=== PATIENT | female | born 1955 | race African-American/Black ===

== ENCOUNTER → 2018-10-28 13:39 | Outpatient (CLI) | payer OTHER, SELFPAY ==
--- NOTE | 2018-10-28 | DI.US.S_ITS ---
PROCEDURE: US PERIPH VENOUS LOW EXTREM RT INDICATIONS: LUMBAR RADICULOPATHY LEFT LEG PAIN TECHNIQUE: Real-time imaging, as well as color and pulse Doppler interrogation, were performed of the lower extremity deep veins from the inguinal ligament to the popliteal fossa. COMPARISON: None. FINDINGS: The common femoral, femoral and popliteal veins are normally compressible, and free of intraluminal thrombus. Color and pulse Doppler demonstrate normal phasic intraluminal flow. There is normal augmentation response to distal compression maneuver. IMPRESSION: No evidence of deep venous thrombosis. Dictated by: Rachid Garibay M.D. on 10/28/2018 at 15:01 Approved by: Rachid Garibay M.D. on 10/28/2018 at 15:02
--- NOTE | 2018-10-28 | DI.MRI.S_ITS ---
PROCEDURE: MR LUMBAR SPINE WO CON INDICATIONS: LUMBAR RADICULOPATHY LEFT LEG PAIN TECHNIQUE: Noncontrast sagittal T1 spin echo and T2 fast echo, coronal T2, sagittal STIR, axial T1 and T2 fast spin echo through the lumbar spine. COMPARISON: [facility], MR, L-SPINE WITHOUT CONTRAST, 04/19/2016, 10:31. [facility] [place], CR, XR LUMBAR SPINE 2 OR 3 VIEWS, 11/27/2017, 11:01. FINDINGS: Image quality: Excellent. Alignment and Curvature: 5 lumbar type vertebral bodies are present by plain film. There is mild diffuse leftward curvature of the lumbar spine, and otherwise normal bony alignment. Bone Marrow: Marrow is of normal overall signal. No acute vertebral body compression fractures. Mild reactive signal within the endplates adjacent to the L1-L2, L2-L3, L3-L4, and L4-L5 intervertebral discs. Spinal Cord: Conus medullaris terminates at the mid L1 level. Visualized cord demonstrates normal signal and size. Paraspinous Soft Tissues: No paravertebral masses. L1-L2: Minimal disc desiccation. No significant canal, nor foraminal stenosis. L2-L3: Mild disc desiccation. Mild diffuse disc bulge. Mild facet hypertrophy. Mild canal stenosis. No significant foraminal stenosis. No change. L3-L4: Mild disc loss and desiccation. Mild diffuse disc bulge. Mild facet and ligament flavum hypertrophy. Mild canal stenosis. Mild bilateral foraminal stenosis. No change. L4-L5: Mild diffuse disc bulge. Mild facet hypertrophy bilaterally. Mild canal stenosis. Mild bilateral foraminal stenosis. No change. L5-S1: Mild bilateral facet hypertrophy. Mild diffuse disc bulge. Mild canal stenosis. Moderate subarticular foraminal stenosis bilaterally. No change. IMPRESSION: 1. Multilevel degenerative disc and facet disease, as well as ligamentum flavum hypertrophy and epidural lipomatosis. 2. Mild multilevel canal stenoses. 3. Multilevel foraminal stenoses, worst at L5-S1 bilaterally where there are moderate foraminal stenoses present. Dictated by: Inder Sanders M.D. on 10/28/2018 at 13:53 Approved by: Inder Sanders M.D. on 10/28/2018 at 13:58
== END ==
PROVIDERS: PCP Family Medicine; Visit Provider Physical Medicine & Rehabilitation
DX: M79.605 Pain in left leg (principal); M51.16 Intervertebral disc disorders with radiculopathy, lumbar region; M51.17 Intervertebral disc disorders with radiculopathy, lumbosacral region; M48.061 Spinal stenosis, lumbar region without neurogenic claudication; M48.07 Spinal stenosis, lumbosacral region; E88.2 Lipomatosis, not elsewhere classified
CPT/HCPCS: 72148; 93971

== ENCOUNTER 2018-12-29 22:45 | Emergency (ER) | payer OTHER, SELFPAY ==
--- NOTE | 2018-12-29 22:55 | DI.US.S_ITS ---
PROCEDURE: US PERIPH VENOUS UP EXTREM LT INDICATIONS: PAIN, ERYTHEMA TECHNIQUE: Real-time imaging, as well as color and pulse Doppler interrogation, was performed of the left upper extremity upper extremity deep veins from the inferior neck to the antecubital fossa. COMPARISON: None. FINDINGS: The internal jugular vein, visualized portions of the subclavian vein, axillary, and brachial veins are free of intraluminal thrombus. Where physically possible, the veins are normally compressible. Color and pulse Doppler demonstrate normal intraluminal flow, with expected phasicity and pulsatility. Additional scanning of the cephalic and basilic veins of the superficial system demonstrate normal compressibility, without thrombus. IMPRESSION: No DVT found. Dictated by: Sahil Rutledge M.D. on 12/30/2018 at 1:08 Approved by: Sahil Rutledge M.D. on 12/30/2018 at 1:08
--- NOTE | 2018-12-29 22:56 | DI.RAD.S_ITS ---
PROCEDURE: XR CHEST 1V INDICATIONS: Left arm pain, Hypertension TECHNIQUE: One view of the chest was acquired. COMPARISON: None. FINDINGS: Surgical changes and devices: None. Lungs and pleura: Lungs are clear. No pleural effusions or pneumothorax. Mediastinum: Mediastinal contours appear normal. Heart size is normal. Bones and chest wall: No suspicious bony lesions. Overlying soft tissues appear unremarkable. IMPRESSION: Normal for age, source of current chest pain symptoms is not seen. Dictated by: Sahil Rutledge M.D. on 12/30/2018 at 1:11 Approved by: Sahil Rutledge M.D. on 12/30/2018 at 1:12
[2018-12-29 22:59] VITALS: BP 205/86; PULSE 76; RESP 18; TEMP 35.9; O2SAT 98; BMI 23.1
[2018-12-29 23:10] LABS: Bacteria Urine None Seen; WBC Urine None Seen (0-5/HPF)
--- NOTE | 2018-12-29 23:16 | ED_ITS ---
HPI - Extremity Problem General Chief complaint: Extremity Problem,Nontraumatic Stated complaint: pain left arm Time Seen by Provider: 12/29/18 22:47 Source: patient and family Mode of arrival: ambulatory Limitations: no limitations History of Present Illness HPI Narrative: 63F nonsmoker presents with her and chief complaint of L arm pain starting at the elbow and down her arm in the absence of injury. She states that started last Sunday or and persisted throughout the week and now is worsening. She has pain with motion and palpation. She denies any injury nor associated symptoms such as dizziness, weakness, lightheadedness, chest pain, shortness of breath, nausea, vomiting or diaphoresis. She denies any fever or chills. She denies any history of the same. She denies recent IVs, history of IV drug abuse or other MD Complaint: extremity pain Onset (ago): day(s) Pain Consistency: constant Location: left Quality: aching Radiation: distal Relieving factors: immobilization and rest Exacerbating factors: range of motion Associated symptoms: denies other symptoms Related Data Previous Rx's Medication Instructions Recorded doxycycline hyclate 100 mg PO BID #20 tab 12/30/18 hydrocodone-acetaminophen 1 tab PO Q4-6H PRN #10 tab 12/30/18 ketorolac 10 mg PO TID PRN 5 Days tab 12/30/18 Allergies Allergy/AdvReac Type Severity Reaction Status Date / Time No Known Drug Allergies Allergy Verified 12/29/18 22:59 Review of Systems Constitutional Denies chills, Denies fever(s), Denies lethargy and Denies weakness Eyes Denies change in vision, Denies eye discharge, Denies irritation and Denies loss of vision ENT Ears, Nose, Mouth, and Throat: Denies change in voice, Denies neck pain and Denies sore throat Cardiovascular Denies chest pain, Denies irregular heart rhythm, Denies lightheadedness, Denies palpitations, Denies dyspnea, Denies dyspnea on exertion and Denies orthopnea Respiratory Denies cough, Denies dyspnea, Denies dyspnea on exertion and Denies wheezing Gastrointestinal Gastrointestinal: Denies abdominal pain, Denies change in bowel habits, Denies diarrhea, Denies nausea and Denies vomiting Genitourinary Denies hematuria, Denies flank pain, Denies urinary incontinence and Denies urinary urgency Musculoskeletal Reports limited range of motion and Denies neck pain Integumentary/Breasts Denies pruritus, Denies erythema, Denies rash and Denies wounds Neurologic Denies confusion, Denies loss of vision and Denies weakness Psychiatric Denies anxiety, Denies confusion, Denies depression, Denies homicidal ideation and Denies suicidal ideation Endocrine Denies palpitations Hematologic/Lymphatic Denies easy bruising Allergic/Immunologic Denies wheezing PFSH Social History Smoking Status: Never smoker Social History Smoking Status: Never smoker Exam Narrative Exam Narrative: GENERAL: [63] year old patient appears stated age. Well- nourished, well-developed patient, in mild distress. HEAD: Atraumatic. Normocephalic. EYES: Pupils equal round and reactive. Extraocular motions intact. No scleral icterus. No injection or drainage. ENT: Nose without bleeding, purulent drainage. Throat without erythema, tonsillar hypertrophy or exudate. Airway patent. NECK: Trachea midline. Non tender CARDIOVASCULAR: Regular rate and rhythm without murmurs, gallops, or rubs. RESPIRATORY: Clear to auscultation. Breath sounds equal bilaterally. No wheezes, rales, or rhonchi. GASTROINTESTINAL: Abdomen soft, non-tender, nondistended. EXTREMITIES: Full, painless range of motion at left elbow and wrist. There is minimal swelling and erythema, no induration or fluctuance. No lymphangitis BACK: Nontender without deformity or crepitance. No flank tenderness. NEURO: AOx3. SKIN: No rash or erythema of visible areas other than noted above Initial Vital Signs Initial Vital Signs: Vital Signs Temperature 96.6 F L 12/29/18 22:59 Pulse Rate 76 12/29/18 22:59 Respiratory Rate 18 12/29/18 22:59 Blood Pressure 205/86 H 12/29/18 22:59 Pulse Oximetry 98 12/29/18 22:59 Course Orders Ordered: Discontinued Medications Hydrocodone Bitart/Acetaminophen (Vicodin Prepack) 1 bottle MISC SEEINSTR ONE Stop: 12/30/18 00:22 Last Admin: 12/30/18 00:27 Dose: 1 bottle Ketorolac Tromethamine (Toradol) 15 mg IV NOW ONE Stop: 12/29/18 22:56 Last Admin: 12/29/18 23:34 Dose: 15 mg Vital Signs - 8 hr 12/29/18 22:59 12/29/18 23:48 Temperature 96.6 F L Pulse Rate 76 11 L Respiratory Rate 18 12 Blood Pressure 205/86 H Blood Pressure [Left Arm] 168/80 H Pulse Oximetry 98 98 MDM - Extremity (Nontraumatic) Lab Data Result diagrams: 12/29/18 23:25 12/29/18 23:25 Lab Results 12/29/18 12/29/18 12/29/18 Range/Units 23:00 23:25 23:25 WBC 8.6 (4.5-11.0) X10^3/uL RBC 4.57 (4.0-5.2) X10^6/uL Hgb 12.9 (12.0-16.0) g/dL Hct 38.1 (36-46) % MCV 83.4 (80-100) fL MCH 28.1 (26-34) PG MCHC 33.7 (30-36) % RDW 13.9 (11.6-14.8) % Plt Count 223 (150-400) X10^3/uL Neut % (Auto) 59.2 (50-75) % Lymph % (Auto) 29.4 (25-40) % [place] % (Auto) 6.4 (3-14) % Eos % (Auto) 4.1 H (2-4) % Baso % (Auto) 0.9 (0-2) % Neut # (Auto) 5100 (3791-2558) /uL Lymph # (Auto) 2500 (7198-8174) /uL [place] # (Auto) 600 (0-900) /uL Eos # (Auto) 400 (0-450) /uL Baso # (Auto) 100 (0-100) /uL ESR 28 H (0-20) MM/HR Sodium 140 (137-145) mmol/L Potassium 3.8 (3.4-5.1) mmol/L Chloride 104 (98-107) mmol/L Carbon Dioxide 30 (22-32) mmol/L BUN 15 (7-17) mg/dL Creatinine 0.70 (0.52-1.04) mg/dL Estimated GFR > 60.0 (>60) mL/min BUN/Creatinine Ratio 21.4 (6-22) Glucose 106 (80-110) mg/dL Calcium 9.1 (8.4-10.2) mg/dL Total Creatine Kinase (30-135) U/L Troponin I < 0.012 (0.01-0.034) ng/mL C-Reactive Protein 1.1 H (<1.0) mg/dL Urine RBC 0-1/hpf (0-5/HPF) Urine WBC None seen (0-5/HPF) Ur Squamous Epith Cells 0-1 /hpf (0-5/HPF) Urine Bacteria None seen (None) Ur Culture Indicated? Cult not indicated 12/29/18 Range/Units 23:25 WBC (4.5-11.0) X10^3/uL RBC (4.0-5.2) X10^6/uL Hgb (12.0-16.0) g/dL Hct (36-46) % MCV (80-100) fL MCH (26-34) PG MCHC (30-36) % RDW (11.6-14.8) % Plt Count (150-400) X10^3/uL Neut % (Auto) (50-75) % Lymph % (Auto) (25-40) % [place] % (Auto) (3-14) % Eos % (Auto) (2-4) % Baso % (Auto) (0-2) % Neut # (Auto) (1788-4388) /uL Lymph # (Auto) (0971-6702) /uL [place] # (Auto) (0-900) /uL Eos # (Auto) (0-450) /uL Baso # (Auto) (0-100) /uL ESR (0-20) MM/HR Sodium (137-145) mmol/L Potassium (3.4-5.1) mmol/L Chloride (98-107) mmol/L Carbon Dioxide (22-32) mmol/L BUN (7-17) mg/dL Creatinine (0.52-1.04) mg/dL Estimated GFR (>60) mL/min BUN/Creatinine Ratio (6-22) Glucose (80-110) mg/dL Calcium (8.4-10.2) mg/dL Total Creatine Kinase 162 H (30-135) U/L Troponin I (0.01-0.034) ng/mL C-Reactive Protein (<1.0) mg/dL Urine RBC (0-5/HPF) Urine WBC (0-5/HPF) Ur Squamous Epith Cells (0-5/HPF) Urine Bacteria (None) Ur Culture Indicated? Urine Dip Bedside Urine Glucose Negative Bedside Urine Bilirubin - Negative Bedside Urine Ketone - Negative Urine Specific [place] 1.010 Bedside Urine Occult Blood + Bedside Urine pH 6.0 Bedside Urine Protein - Negative Bedside Urine Urobilinogen - Negative Bedside Urine Nitrite - Negative Bedside Urine Leukocytes - Negative Esterase MDM Narrative Medical decision making narrative: Multiple etiologies for patient's symptoms considered including: [DVT versus cellulitis versus arthritis versus shingles versus other] Patient's symptoms improved or duration of stay with above-stated therapies. Findings and discharge diagnosis discussed with patient/family followed by verbalization of understanding Return precautions discussed with patient/family whom verbalize understanding. Discharge Plan Departure Patient Disposition: Home Clinical Impression: Arm pain, left Discharge Date/Time: 12/30/18 00:34 Interventions: ED Discharge Assessment Last Done: 12/30/18 00:28 Instructions: DI for Arm Pain Activity Restrictions/Additional Instructions: *You have been diagnosed with [left arm pain] *What to do: *Take medications as directed *Follow up with your primary care provider in 2-3 days, call for an appointment. Let them know you were seen in the Emergency Department and that we ask that you be seen in follow up *Return to ER if you should have any new, worsening or concerning symptoms Prescriptions: New hydrocodone-acetaminophen 5-325 mg tablet 1 tab PO Q4-6H PRN (Reason: pain) Qty: 10 RF: 0 ketorolac 10 mg tablet 10 mg PO TID PRN (Reason: pain) 5 Days RF: 0 doxycycline hyclate 100 mg tablet 100 mg PO BID Qty: 20 RF: 0 Referrals: Suzy Keller DO [Primary Care Provider] -
[2018-12-29 23:23] LABS: Culture Indicated Urine Cult Not Indicated; RBC Urine 0-1/HPF (0-5/HPF); Squamous Epithelial Cell Urine 0-1 /HPF (0-5/HPF)
[2018-12-29] MEDS: KETOROLAC 60 MG/2 ML VIAL 15 MG IV (23:34)
[2018-12-29 23:35] LABS: Add Manual Diff / Slide Review NO; Basophils Absolute Auto 100 /uL (0-100); Basophils Percent Auto 0.9 % (0-2); Eosinophils Absolute Auto 400 /uL (0-450); Eosinophils Percent Auto 4.1 % (2-4); Hematocrit 38.1 % (36-46); Hemoglobin 12.9 g/dL (12.0-16.0); Lymphocytes Absolute Auto 2500 /uL (1100-4500); Lymphocytes Percent Auto 29.4 % (25-40); Mean Corpuscular HGB Conc 33.7 % (30-36); Mean Corpuscular Hemoglobin 28.1 PG (26-34); Mean Corpuscular Volume 83.4 fL (80-100); Monocytes Absolute Auto 600 /uL (0-900); Monocytes Percent Auto 6.4 % (3-14); Neutrophils Absolute Auto 5100 /uL (1500-7000); Neutrophils Percent Auto 59.2 % (50-75); Platelet Count 223 X10^3/uL (150-400); Red Blood Cell Count 4.57 X10^6/uL (4.0-5.2); Red Cell Distribution Width 13.9 % (11.6-14.8); White Blood Cell Count 8.6 X10^3/uL (4.5-11.0)
[2018-12-29 23:46] LABS: Creatine Kinase 162 U/L (30-135)
[2018-12-29 23:47] LABS: BUN Creatinine Ratio 21.4 (6-22); Blood Urea Nitrogen 15 mg/dL (7-17); Calcium 9.1 mg/dL (8.4-10.2); Carbon Dioxide 30 mmol/L (22-32); Chloride 104 mmol/L (98-107); Estimated Glomerular Filt Rate > 60.0 mL/min (>60); Glucose 106 mg/dL (80-110); HEMOLYSIS < 15 (0-50); Potassium 3.8 mmol/L (3.4-5.1); Sodium 140 mmol/L (137-145)
[2018-12-29 23:48] VITALS: BP 168/80; PULSE 11; RESP 12; O2SAT 98
[2018-12-29 23:58] LABS: Troponin I < 0.012 ng/mL (0.01-0.034)
[2018-12-29 23:59] LABS: Erythrocyte Sedimentation Rate 28 MM/HR (0-20)
[2018-12-30] LABS: C-Reactive Protein Quant 1.1 mg/dL (<1.0)
[2018-12-30] MEDS: HYDROCODONE/ACET 5/325 PREPACK 1 BOTTLE MISC (00:27)
[2018-12-30 00:28] VITALS: BP 169/73; PULSE 70; RESP 18; O2SAT 98
[2018-12-30 00:29] VITALS: BP 169/73; PULSE 71; RESP 12; O2SAT 98
== END 2018-12-30 00:34 | disposition home or self-care (01) ==
PROVIDERS: Emergency Provider Emergency Medicine; PCP Family Medicine
DX: M79.602 Pain in left arm (principal)
CPT/HCPCS: 36591; 71045; 80048; 81003; 81015; 82550; 84484; 85025; 85651; 86140; 93005; 93971; 96374; 99282; 99284; J1885

== ENCOUNTER 2020-02-17 22:24 | Emergency (ER) | payer OTHER, SELFPAY ==
[2020-02-17 22:30] VITALS: BP 189/92; PULSE 76; O2SAT 99
[2020-02-17 22:32] VITALS: BP 184/92; PULSE 73; RESP 17; TEMP 36.8; O2SAT 99; BMI 29.6
--- NOTE | 2020-02-17 23:24 | DI.RAD.S_ITS ---
PROCEDURE: XR FOREARM RT 2V INDICATIONS: Elbow pain, forearm pain TECHNIQUE: 2 views of the forearm were acquired. COMPARISON: None. FINDINGS: Bones: Chronic appearing fracture of the ulnar styloid process. No acute fracture identified. Soft tissues: No suspicious soft tissue calcifications or masses. IMPRESSION: No acute fracture. No acute osseous lesion. If symptoms and/or clinical suspicion for pathology persists, further assessment with repeat radiographs (7-10 days) or advanced imaging (e.g. CT, MRI or bone scan) may be helpful. Dictated by: Felicia Sands MD, PhD on 02/18/2020 at 8:44 Approved by: Felicia Sands MD, PhD on 02/18/2020 at 8:45
--- NOTE | 2020-02-17 23:25 | ED.UPPEXIN ---
HPI - Extremity Injury (Upper) General Chief Complaint: Extremity Injury, Upper Stated Complaint: left forearm pain, no known injury Time Seen by Provider: 02/17/20 23:14 Source: patient and family Mode of arrival: Ambulatory Limitations: no limitations History of Present Illness HPI narrative: Patient here with and brother. Complains 5 days of left medial elbow pain that radiates to the 3rd 4th and 5th fingers. No weakness. No known injury. Pain is reproducible with supination pronation and squeezing of the left hand. Patient is right handed. Patient seen here December 2018 for the same pain. Had ultrasound blood work EKG troponin done and were normal. No DVT. Patient denies any injury. No repetitive movements. Patient seen by her primary care at [facility] yesterday and had outpt US doppler at [place] yesterday as well...was called today and neg for DVT. Never had MRI or x-ray of the elbow or forearm. Primary care informed her that she may need MRI of the extremity. No referral to Orthopedics yet. Denies any chest pain. No shoulder pain. No dyspnea. Related Data Previous Rx's Medication Instructions Recorded doxycycline hyclate 100 mg PO BID #20 tab 12/30/18 hydrocodone-acetaminophen 1 tab PO Q4-6H PRN #10 tab 12/30/18 hydrocodone-acetaminophen [[address]] 1 tab PO Q8H PRN #14 tab 02/17/20 ondansetron 4 mg PO Q8H PRN #10 tab 02/17/20 Allergies Allergy/AdvReac Type Severity Reaction Status Date / Time No Known Drug Allergies Allergy Verified 12/29/18 22:59 Review of Systems Review of Systems Narrative: GENERAL: Denies chills, fatigue, malaise, fever, sweats. HEENT: Denies sinus pain, ear pain, sore throat, difficulty swallowing, dizziness. RESPIRATORY: Denies dyspnea, cough, wheezing, hemoptysis, sputum. CARDIOVASCULAR: Denies chest pain, palpitations, orthopnea, edema, GASTROINTESTINAL: Denies nausea, vomiting, abdominal pain, diarrhea, constipation, melena. : Denies dysuria, frequency, incontinence, hematuria, urinary retention. MUSCULOSKELETAL: denies weakness, complains joint pain, or bony pain SKIN: Denies rash, skin lesions NEUROLOGIC: Denies weakness, headache, numbness, change in speech, confusion, seizures, incoordination. PSYCHIATRIC: No concerning psychosocial issues. ROS Unobtainable: All systems reviewed & are unremarkable except as noted in HPI and below Patient History Social History Smoking Status: Never smoker Smoking Status: Never smoker alcohol intake frequency: holidays/special occasions only Substance Use Type: does not use Exam Narrative Exam Narrative: GENERAL: patient appears stated age. Well-nourished, well-developed patient, in no distress, not toxic HEAD: Atraumatic. Normocephalic. EYES: Pupils equal round and reactive. Extraocular motions intact. No scleral icterus. No injection or drainage. CARDIOVASCULAR: Regular rate and rhythm without murmurs, gallops, or rubs. RESPIRATORY: Clear to auscultation. Breath sounds equal bilaterally. No wheezes, rales, or rhonchi. EXTREMITIES: Examination left upper extremity elbow to fingertips exposed. Able to fully pronate but not fully supinate due to pain. Flutter range of motion otherwise at the wrist. Reproducible tenderness at the medial condyle of the elbow. No rash or erythema or cellulitis. No induration. Strong left civil project engineer in radial pulse with light touch intact to fingers and thumb. Tenderness along the ulnar surface aspect of the forearm. Does have pain with gripping. BACK: Nontender without deformity or crepitance. No flank tenderness. NEURO: AOx4. SKIN: No rash or erythema of visible areas PSYCH: Not anxious, is cooperative Initial Vital Signs Initial Vital Signs: Vital Signs Pulse Rate 76 02/17/20 22:30 Blood Pressure 189/92 H 02/17/20 22:30 Pulse Oximetry 99 02/17/20 22:30 Course Course Course Narrative: I reviewed blood pressure with patient and . It was elevated in the doctor's office yesterday. Systolic 169 in the office. No no chest pain or symptoms from high blood pressure. Patient is also on steroids 2nd elevated blood pressure. She states the steroids is not helping the pain. Informed patient may need to stop the steroids if not helping. She will need blood pressure recheck in the office within a week. She and agree with plan. Orders Ordered: ED Orders 02/17/20 23:24 XR forearm LT 2V Stat Discontinued Medications Hydrocodone Bitart/Acetaminophen ([address] 5/325) 2 tab PO NOW ONE Stop: 02/17/20 23:25 Last Admin: 02/17/20 23:34 Dose: 2 tab Documented by: [place] Ketorolac Tromethamine (Toradol) 30 mg IM NOW ONE Stop: 02/17/20 23:25 Last Admin: 02/17/20 23:34 Dose: 30 mg Documented by: [place] Ondansetron HCl (Zofran Odt) 4 mg SL NOW ONE Stop: 02/17/20 23:25 Last Admin: 02/17/20 23:35 Dose: 4 mg Documented by: [place] Reevaluation(s) Reevaluation #1: Pain is improving. Reviewed x-ray with patient and family. They agree for follow-up with primary care and Orthopedics. Understand that they may need MRI of the arm and elbow. Not toxic at discharge Time: 00:10 Vital Signs Vital signs: Vital Signs - 8 hr 02/17/20 22:30 02/17/20 22:32 02/18/20 00:24 Temperature 98.3 F Pulse Rate 76 73 71 Respiratory Rate 17 17 Blood Pressure 189/92 H 184/92 H 185/85 H Pulse Oximetry 99 99 95 MDM - Extremity Injury (Upper) Differential Diagnosis Differential diagnosis: Likely other (Ulnar nerve impingement/tendinitis) Medical Records Attestation: I reviewed the patient's medical records. Medical records narrative: EKG from December 29, 2018 at 10:56 p.m.. Sinus rhythm. No ST elevation Imaging Data Extremity x-ray #1: Attestation: I personally reviewed and interpreted this imaging study as follows: My Impression: X-ray left forearm no acute process MDM Narrative Medical decision making narrative: No Doppler tonight. Just done yesterday palpation. No EKG or blood work indicated this time. No fever. No chest pain. Clinically no signs of infection or cellulitis or septic joint. Will need outpatient MRI if the forearm and elbow and referral to Orthopedics. Discharge Plan Departure Patient Disposition: Home Clinical Impression: Left forearm pain Discharge Date/Time: 02/18/20 00:25 Instructions: DI for Elbow Pain Activity Restrictions/Additional Instructions: No driving tonight. Complete or steroid pack as prescribed by your family doctor. Call provided orthopedic office in the morning for office recheck in a week. May need referral from your family doctor for Orthopedics as well as MRI of your arm. Return if worse or if any questions or concerns. Prescriptions: New hydrocodone-acetaminophen [[address]] 7.5-325 mg tablet 1 tab PO Q8H PRN (Reason: pain) Qty: 14 RF: 0 ondansetron 4 mg tablet,disintegrating 4 mg PO Q8H PRN (Reason: nausea and vomiting) Qty: 10 RF: 0 No Action hydrocodone-acetaminophen 5-325 mg tablet 1 tab PO Q4-6H PRN (Reason: pain) Qty: 10 RF: 0 doxycycline hyclate 100 mg tablet 100 mg PO BID Qty: 20 RF: 0 Referrals: Manny Brooks MD [Physician] - Suzy Keller DO [Primary Care Provider] -
[2020-02-17] MEDS: KETOROLAC 60 MG/2 ML VIAL 30 MG IM (23:34)
[2020-02-17] MEDS: HYDROCODONE/ACET 5/325 TABLET 2 TAB PO (23:34)
[2020-02-17] MEDS: ONDANSETRON 4 MG ODT SL (23:35)
[2020-02-18 00:24] VITALS: BP 185/85; PULSE 71; RESP 17; O2SAT 95
== END 2020-02-18 00:25 | disposition home or self-care (01) ==
PROVIDERS: Emergency Provider Emergency Medicine; PCP Family Medicine
DX: M25.522 Pain in left elbow (principal)
CPT/HCPCS: 73090; 96372; 99283; J1885

== ENCOUNTER 2021-02-16 16:42 | Observation (INO) | payer MEDICARE, OTHER, SELFPAY ==
[2021-02-16] VITALS (17 sets, daily range): BP systolic 149–222; BP diastolic 71–93; PULSE 62–175; RESP 12–22; TEMP 36.4–36.8; O2SAT 88–100; BMI 27.4
--- NOTE | 2021-02-16 16:51 | DI.RAD.S_ITS ---
PROCEDURE: XR CHEST 1V INDICATIONS: chest pain TECHNIQUE: One view of the chest was acquired. COMPARISON: [facility], CR, XR CHEST 1V, 12/29/2018, 23:50. FINDINGS: Surgical changes and devices: None. Lungs and pleura: Lungs are clear. No pleural effusions or pneumothorax. Mediastinum: Mediastinal contours appear normal. Heart size is normal. Bones and chest wall: No suspicious bony lesions. Overlying soft tissues appear unremarkable. IMPRESSION: No acute cardiopulmonary pathology. Dictated by: Serg Garrett M.D. on 02/16/2021 at 17:03 Approved by: Serg Garrett M.D. on 02/16/2021 at 17:03
--- NOTE | 2021-02-16 16:55 | PC.NURSE ---
C/O: CP 09/20, given 2 Nitro and 324 ASA prior to arrival. Coming from [facility] on [facility]. EMS reports sinus rhythm in truck, hypertensive in the 170's. Clinic wanted patient sent to [facility] but [facility] is on divert so EMS brought patient here.
[2021-02-16 17:11] LABS: Add Manual Diff / Slide Review NO; Basophils Absolute Auto 100 /uL (0-100); Basophils Percent Auto 0.7 % (0-2); Eosinophils Absolute Auto 200 /uL (0-450); Eosinophils Percent Auto 2.6 % (2-4); Hematocrit 36.5 % (36-46); Hemoglobin 12.2 g/dL (12.0-16.0); Lymphocytes Absolute Auto 1600 /uL (1100-4500); Lymphocytes Percent Auto 21.3 % (25-40); Mean Corpuscular HGB Conc 33.5 % (30-36); Mean Corpuscular Volume 83.7 fL (80-100); Monocytes Absolute Auto 400 /uL (0-900); Monocytes Percent Auto 5.7 % (3-14); Neutrophils Absolute Auto 5200 /uL (1500-7000); Neutrophils Percent Auto 69.7 % (50-75); Platelet Count 216 X10^3/uL (150-400); Red Blood Cell Count 4.36 X10^6/uL (4.0-5.2); White Blood Cell Count 7.5 X10^3/uL (4.5-11.0)
[2021-02-16 17:23] LABS: Alanine Aminotransferase 14 IU/L (<35); Albumin 4.2 g/dL (3.5-5.0); Albumin Globulin Ratio 1.2 (1.0-2.8); Alkaline Phosphatase 85 U/L (38-126); Aspartate Aminotransferase 19 IU/L (14-36); BUN Creatinine Ratio 13.7 (6-22); Bilirubin Total 0.2 mg/dL (0.2-1.3); Blood Urea Nitrogen 10 mg/dL (7-17); Calcium 9.2 mg/dL (8.4-10.2); Carbon Dioxide 32 mmol/L (22-32); Chloride 106 mmol/L (98-107); Creatine Kinase 48 U/L (30-135); Estimated Glomerular Filt Rate > 60.0 mL/min (>60); Globulin 3.4 g/dL (1.7-4.1); Glucose 121 mg/dL (80-110); HEMOLYSIS < 15 (0-50); Lipase 44 U/L (23-300); Potassium 3.5 mmol/L (3.4-5.1); Sodium 145 mmol/L (137-145); Total Protein 7.6 g/dL (6.3-8.2)
--- NOTE | 2021-02-16 17:28 | ED.CHESTPAIN ---
HPI - Chest Pain General Chief Complaint: Chest Pain Stated Complaint: Chest Pain Time Seen by Provider: 02/16/21 16:49 Source: EMS Mode of arrival: EMS Limitations: no limitations History of Present Illness HPI narrative: Patient is a 65-year-old female with history of hyperlipidemia presenting with chest discomfort ongoing for last 3 days. She says it is a dull ache on the left side of her chest nonradiating. She thought it was gas she has been taking multiple pfmo-pzx-gyylwha medications without any relief. 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 She was given aspirin and nitro in the ambulance which seemed to help. Pain is non radiating she denies any shortness of breath with exertion. Pain comes and goes without any provocation or palliation. She currently states that her pain is a 4/10. Related Data Previous Rx's Medication Instructions Recorded doxycycline hyclate 100 mg tablet 100 mg PO BID #20 tab 12/30/18 hydrocodone 5 mg-acetaminophen 325 1 tab PO Q4-6H PRN #10 tab 12/30/18 mg tablet hydrocodone 7.5 mg-acetaminophen 1 tab PO Q8H PRN #14 tab 02/17/20 325 mg tablet ([place]) ondansetron 4 mg disintegrating 4 mg PO Q8H PRN #10 tab 02/17/20 tablet Allergies Allergy/AdvReac Type Severity Reaction Status Date / Time No Known Drug Allergies Allergy Verified 12/29/18 22:59 Review of Systems Review of Systems Narrative: GENERAL: Denies chills, fatigue, malaise, fever, sweats, travel HEENT: Denies sinus pain, ear pain, sore throat, difficulty swallowing, neck pain RESPIRATORY: Denies dyspnea, cough, wheezing, hemoptysis, sputum. CARDIOVASCULAR: See HPI GASTROINTESTINAL: Denies nausea, vomiting, abdominal pain, diarrhea, constipation, melena. : Denies dysuria, frequency, incontinence, hematuria, urinary retention, flank pain. MUSCULOSKELETAL: Denies weakness, joint pain, or bony pain SKIN: No rash, no erythema, no pruritus NEUROLOGIC: Denies weakness, dizziness, headache, numbness, change in speech, confusion PSYCHIATRIC: No concerning psychosocial issues. 12 point review of systems is negative except for those stated above and HPI Patient History Social History Smoking Status: Never smoker Smoking Status: Never smoker alcohol intake frequency: 0-2 drinks per day Substance Use Type: does not use Exam Initial Vital Signs Initial Vital Signs: Vital Signs Pulse Rate 69 02/16/21 16:46 Pulse Oximetry 99 02/16/21 16:46 GENERAL: Alert well-appearing 65-year-old female in no acute distress. HEENT: Head atraumatic,EOMI, pupils reactive, face symmetric, moist mucous membranes CARDIOVASCULAR: Regular rate and rhythm without murmurs, rubs or gallops. RESPIRATORY: Breath sounds equal bilaterally, no wheezes rales or rhonchi. ABDOMEN: Soft, nontender. Normoactive bowel sounds all 4 quadrants. No guarding or rebound. EXTREMITIES: Normal range of motion, no clubbing or edema. Neurovascularly intact NEUROLOGICAL: Alert and oriented x4.Normal gait and speech. SKIN: Warm, dry, no laceration, no petechiae, no rashes or lesions. Scores HEART Score Heart Score history: Moderately Suspicious Heart Score EKG: Non-Specific repolarization disturbance Heart Score Age: > or = 65 years old Heart Score risk factors: 1-2 risk factors Heart Score troponin: < or = to normal limit Heart Score Total: 5 Course Orders Ordered: ED Orders 02/16/21 16:51 XR chest 1V Stat EKG-12 Lead Stat 02/16/21 17:03 Complete Blood Count AUTO DIFF Stat Comprehensive Metabolic Panel Stat Lipase Stat Troponin & CK Cardiac Panel Stat 02/16/21 17:30 Urine Microscopic Stat Acetaminophen (Acetaminophen 325 Mg Tablet) 650 mg PO Q6HR PRN PRN Reason: Fever/Mild Pain (1-3) Aspirin (Aspirin Ec 81 Mg Tablet) 81 mg PO DAILY RODY Atorvastatin Calcium (Atorvastatin 20 Mg Tablet) 80 mg PO BEDTIME RODY Nitroglycerin (Nitroglycerin 0.4 Mg Sl Tab) 0.4 mg SL [id number] PRN PRN Reason: Chest Pain Discontinued Medications Acetaminophen (Acetaminophen 325 Mg Tablet) 975 mg PO NOW ONE Stop: 02/16/21 17:29 Last Admin: 02/16/21 18:07 Dose: 975 mg Documented by: JONY Nitroglycerin (Nitroglycerin 0.4 Mg Sl Tab) 0.4 mg SL NOW ONE Stop: 02/16/21 17:29 Last Admin: 02/16/21 18:10 Dose: 0.4 mg Documented by: JONY Vital Signs Vital signs: Vital Signs - 8 hr 02/16/21 16:46 02/16/21 16:49 02/16/21 16:50 Pulse Rate 69 175 H 70 Respiratory Rate 18 15 Blood Pressure 175/77 H Pulse Oximetry 99 99 100 02/16/21 17:00 02/16/21 17:30 02/16/21 17:31 Pulse Rate 72 71 Respiratory Rate 22 15 Blood Pressure 222/93 H Pulse Oximetry 100 88 L 99 MDM - Chest Pain Lab Data Result diagrams: 02/16/21 17:03 02/16/21 17:03 Labs: Lab Results 02/16/21 02/16/21 02/16/21 Range/Units 17:03 17:03 17:30 WBC 7.5 (4.5-11.0) X10^3/uL RBC 4.36 (4.0-5.2) X10^6/uL Hgb 12.2 (12.0-16.0) g/dL Hct 36.5 (36-46) % MCV 83.7 (80-100) fL MCH 28.0 (26-34) PG MCHC 33.5 (30-36) % RDW 14.0 (11.6-14.8) % Plt Count 216 (150-400) X10^3/uL Neut % (Auto) 69.7 (50-75) % Lymph % (Auto) 21.3 L (25-40) % [place] % (Auto) 5.7 (3-14) % Eos % (Auto) 2.6 (2-4) % Baso % (Auto) 0.7 (0-2) % Neut # (Auto) 5200 (7502-2084) /uL Lymph # (Auto) 1600 (6518-1667) /uL [place] # (Auto) 400 (0-900) /uL Eos # (Auto) 200 (0-450) /uL Baso # (Auto) 100 (0-100) /uL Sodium 145 (137-145) mmol/L Potassium 3.5 (3.4-5.1) mmol/L Chloride 106 (98-107) mmol/L Carbon Dioxide 32 (22-32) mmol/L BUN 10 (7-17) mg/dL Creatinine 0.73 (0.52-1.04) mg/dL Estimated GFR > 60.0 (>60) mL/min BUN/Creatinine Ratio 13.7 (6-22) Glucose 121 H (80-110) mg/dL Calcium 9.2 (8.4-10.2) mg/dL Total Bilirubin 0.2 (0.2-1.3) mg/dL AST 19 (14-36) IU/L ALT 14 (<35) IU/L Alkaline Phosphatase 85 (38-126) U/L Total Creatine Kinase 48 (30-135) U/L CK-MB (CK-2) TNP CK-MB (CK-2) Rel Index TNP Troponin I < 0.012 (0.01-0.034) ng/mL Total Protein 7.6 (6.3-8.2) g/dL Albumin 4.2 (3.5-5.0) g/dL Globulin 3.4 (1.7-4.1) g/dL Albumin/Globulin Ratio 1.2 (1.0-2.8) Lipase 44 (23-300) U/L Urine RBC 0-1/hpf (0-5/HPF) Urine WBC 0-1/hpf (0-5/HPF) Ur Squamous Epith Cells 1-5 /hpf (0-5/HPF) Urine Bacteria Occasional (0-1) (None) Ur Culture Indicated? Cult not indicated Urine Dip Bedside Urine Glucose Negative Bedside Urine Bilirubin - Negative Bedside Urine Ketone - Negative Urine Specific [place] 1.015 Bedside Urine Occult Blood +/- Bedside Urine pH 6.5 Bedside Urine Protein - Negative Bedside Urine Urobilinogen - Negative Bedside Urine Nitrite - Negative Bedside Urine Leukocytes - Negative Esterase Imaging Data Chest x-ray: Radiologist's Impression: PROCEDURE:? XR CHEST 1V ? INDICATIONS:? chest pain ? TECHNIQUE:? One view of the chest was acquired.? ? COMPARISON:? [facility], CR, XR CHEST 1V, 12/29/2018, 23:50. ? FINDINGS:? ? Surgical changes and devices:? None.? ? Lungs and pleura:? Lungs are clear.? No pleural effusions or pneumothorax.? ? Mediastinum:? Mediastinal contours appear normal.? Heart size is normal.? ? Bones and chest wall:? No suspicious bony lesions.? Overlying soft tissues appear unremarkable.? ? IMPRESSION:? No acute cardiopulmonary pathology. ? ? Dictated by: Serg Garrett M.D. on 02/16/2021 at 17:03 ? ? ECG Data Interpretation: Sinus rhythm rate 65 AR interval 134 QRS 90 QTC 393 Q-wave noted in leads 3 and AVF non pathologic T-wave inversion in V2 V3 no ST changes surprisingly no change from 2019 EKG 2. Sinus rhythm rate 62 AR interval 138 QRS 80 QTC 416 persistent T-wave inversions in V2 V3 V4 without ST changes. MDM Narrative Medical decision making narrative: Patient's symptoms are certainly concerning for coronary artery disease. Discussed with her she is high risk and I recommend chest pain observation and stress test and echocardiogram tomorrow. Patient was contemplating leaving however we discussed his high risk and importance of getting a stress test early. Shee finally agreed to admission. Discharge Plan Departure Patient Disposition: Admitted as Observation Clinical Impression: Chest pain Admit Date/Time: 02/16/21 17:44 Admit Provider: Tomasz Paiz
[2021-02-16 17:35] LABS: Troponin I < 0.012 ng/mL (0.01-0.034)
[2021-02-16 17:54] LABS: RBC Urine 0-1/HPF (0-5/HPF); Squamous Epithelial Cell Urine 1-5 /HPF (0-5/HPF); WBC Urine 0-1/HPF (0-5/HPF)
[2021-02-16 17:55] LABS: Bacteria Urine Occasional (0-1); Culture Indicated Urine Cult Not Indicated
[2021-02-16] MEDS: ACETAMINOPHEN 325 MG TABLET 975 MG PO (18:07)
[2021-02-16] MEDS: NITROGLYCERIN 0.4 MG SL TAB SL (18:10)
[2021-02-16 20:38] LABS: COVID19 - ADMIT (NP swab/PCR) Negative (Negative)
[2021-02-16] MEDS: ATORVASTATIN 20 MG TABLET 80 MG PO (22:25)
[2021-02-16] MEDS: MAG HYDROX/ALUMINUM/SIMETH SUS 20 ML, LIDOCAINE VISCOUS 2% 15 ML PO (22:25)
[2021-02-16 23:17] LABS: Troponin I < 0.012 ng/mL (0.01-0.034)
--- NOTE | 2021-02-16 23:27 | PC.NURSE ---
Admit/Evening Shift Note- Patient arrived to room via wheelchair from ER at 2014. mPatient walks with steady agit on her own. Admit questions done, medications reviewed, physical assessment done, and skin check completed. Patient oriented to bed and bed controls, room, lights, phone, menu, bathroom, and call paris/tv remote. Patient independent in room. Patient does agree to call for assistance as needed. Tele monitor applied. Safety measures in place. Call paris and phone within reach. will continue to monitor.
[2021-02-16 23:31] LABS: Hemoglobin A1C% w Est Avg Glu 5.6 % (4.0-6.0)
[2021-02-16] MEDS: lisinopriL 10 MG TABLET PO (23:48)
--- NOTE | 2021-02-17 00:36 | PM.HP.1 ---
History of Present Illness History of Present Illness Date Patient Seen: 02/16/21 Time Patient Seen: 21:42 Chief complaint: Chest Pain Narrative: Patient is Abeba Elaine a 65-year-old female with history of hyperlipidemia, and heartburn presenting with chest discomfort ongoing for last 3 days.? She says it is a dull ache on the left side of her chest nonradiating.? She is able to press on the site and illicit pain. Patient notes that the pain was coming and going for 2 days but today it has been constant, it does not radiate, it does not worsen with deep breathing, eating, or movement. Nothing worsens or improves the pain. She thought it was gas she has been taking multiple jovn-iur-hxvckoc medications without any relief, she notes that she takes omeprazole over the counter only as needed and not consistently. 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 She was given aspirin and nitro in the ambulance which seemed to help. Upon admit to the floor patient states that she feels mild pressure but the pain is resolved, she denies shortness of breath, diaphoresis, changes in vision, headache, abdominal pain, nausea, vomiting, diarrhea, chills, recent illness injury or trauma. Patient states that she has been advised that her blood pressure has been high in the doctor's office from time to time. Patient also reports that she had a thyroidectomy 5-6 years ago but was not required to take medication. Patient denies smoking, alcohol or substance use. Patient does state both mother and father were suffered from heart disease and hypertension. Patient presented to the ED with initial blood pressure 222/93, 171/77, upon admit her BP is improved 149/71, with a heart rate of 68 and still slightly tachypneic with a respiratory rate of 22 O2 sat 97% on room air. Patient's CBC CMP and liver panel troponin, and lipase are all WNL. Chest x-ray is negative for acute cardiopulmonary processes. Heart Score:5, EKG: Sinus rhythm rate 65 MS interval 134 QRS 90 QTC 393 Q-wave noted in leads 3 and AVF non pathologic T-wave inversion in V2 V3 no ST changes surprisingly no change from 2019 EKG 2. Sinus rhythm rate 62 MS interval 138 QRS 80 QTC 416 persistent T-wave inversions in V2 V3 V4 without ST changes. Patient admitted for chest pain rule out. Patient History Medical History (Updated 02/17/21 @ 00:47 by SHEREEN Gomes) Acid reflux Hyperlipidemia Surgical History (Updated 02/17/21 @ 00:47 by SHEREEN Gomes) History of thyroidectomy Family & Social History Family History Mother Hypertension Father Congestive heart failure Hypertension Social History: household members spouse, retired Prior Living Arrangements House Safety & Behavioral: Feels Safe in Current Yes Environment Been Physically Hurt or No Threatened By a Person Suicidal Ideation Description None Suicide Plan Description No Plan Tobacco & Substance use: Smoking Status Never smoker alcohol intake never alcohol intake frequency Never Substance Use Type does not use- never Meds Home Medications and Allergies Home Medications Medication Instructions Recorded Confirmed Type No Known Home Medications 02/16/21 02/16/21 History Allergies Allergy/AdvReac Type Severity Reaction Status Date / Time No Known Drug Allergies Allergy Verified 12/29/18 22:59 Review of Systems Review of Systems Narrative: All 12 point systems reviewed with the patient and are negative except otherwise documented. Exam Vital Signs (past 8 hours): - 02/16/21 16:46 02/16/21 16:49 02/16/21 16:50 Temperature Pulse Rate 69 175 H 70 Respiratory Rate 18 15 Blood Pressure 175/77 H Pulse Oximetry 99 99 100 02/16/21 17:00 02/16/21 17:30 02/16/21 17:31 Temperature Pulse Rate 72 71 Respiratory Rate 22 15 Blood Pressure 222/93 H Pulse Oximetry 100 88 L 99 02/16/21 18:00 02/16/21 18:09 02/16/21 18:10 Temperature Pulse Rate 67 73 65 Respiratory Rate 14 18 Blood Pressure 171/77 H 171/77 H Pulse Oximetry 99 98 02/16/21 18:21 02/16/21 18:30 02/16/21 19:00 Temperature Pulse Rate 70 68 68 Respiratory Rate 17 19 22 Blood Pressure 149/71 H Pulse Oximetry 98 98 97 02/16/21 19:30 02/16/21 20:33 02/16/21 23:48 Temperature 98.2 F Pulse Rate 62 63 65 Respiratory Rate 12 18 Blood Pressure 189/86 H 152/76 H Pulse Oximetry 99 99 02/16/21 23:49 Temperature 97.6 F Pulse Rate 67 Respiratory Rate 16 Blood Pressure 152/72 H Pulse Oximetry 99 Oxygen Delivery Method Room Air Oxygen Flow Rate 0 Narrative Exam Narrative: General: Patient is a well-developed, well-nourished in no distress at this time. HEENT: Normocephalic, atraumatic, extraocular muscles intact, oral pharynx is clear and mucous membranes are moist. Neck is supple and symmetric, trachea is midline, no adenopathy, no thyroid enlargement, nontender, no masses palpated. Negative for JVD Chest: Normal AP diameter and contour without kyphoscoliosis, no nasal flaring, retractions, or tachypneic labored Lungs: Auscultation of all lung lara are clear without adventitious sounds, wheezes, rhonchi, or rales. Cardio: S1 & S2 with regular rate and rhythm without murmur, rubs, or gallops, no carotid bruit, no cardiac pulsations present. Abdomen: Soft nontender, negative for organomegaly, or masses. Bowel sounds are present in all 4 quadrants without guarding or rebound, no CVA tenderness. Musculoskeletal: Muscle strength and tone are equal within normal limits, no deformity, crepitus, effusions, cyanosis, clubbing or edema present. Full range of motion intact radial and pedal pulses are normal. Skin: Warm dry and intact without rashes, ulcerations or petechiae. Neuro: Alert and orientated x3, strength is +5/5 in all extremities, sensation to touch intact, no gross deficits noted of cranial nerves. Psych: Patient has a well-kept appearance, appropriate affect, mental status attitude thought context and judgment are appropriate for age. Objective Labs Result Diagrams: 02/16/21 17:03 02/16/21 17:03 Labs: Laboratory Results - last 24 hr 02/16/21 02/16/21 02/16/21 17:03 17:03 17:03 WBC 7.5 RBC 4.36 Hgb 12.2 Hct 36.5 MCV 83.7 MCH 28.0 MCHC 33.5 RDW 14.0 Plt Count 216 Neut % (Auto) 69.7 Lymph % (Auto) 21.3 L [place] % (Auto) 5.7 Eos % (Auto) 2.6 Baso % (Auto) 0.7 Neut # (Auto) 5200 Lymph # (Auto) 1600 [place] # (Auto) 400 Eos # (Auto) 200 Baso # (Auto) 100 Sodium 145 Potassium 3.5 Chloride 106 Carbon Dioxide 32 BUN 10 Creatinine 0.73 Estimated GFR > 60.0 BUN/Creatinine Ratio 13.7 Glucose 121 H Hemoglobin A1c 5.6 Calcium 9.2 Total Bilirubin 0.2 AST 19 ALT 14 Alkaline Phosphatase 85 Total Creatine Kinase 48 CK-MB (CK-2) TNP CK-MB (CK-2) Rel Index TNP Troponin I < 0.012 Total Protein 7.6 Albumin 4.2 Globulin 3.4 Albumin/Globulin Ratio 1.2 Lipase 44 Urine RBC Urine WBC Ur Squamous Epith Cells Urine Bacteria Ur Culture Indicated? SARS-CoV-2 (PCR) 02/16/21 02/16/21 02/16/21 17:30 19:06 22:43 WBC RBC Hgb Hct MCV MCH MCHC RDW Plt Count Neut % (Auto) Lymph % (Auto) [place] % (Auto) Eos % (Auto) Baso % (Auto) Neut # (Auto) Lymph # (Auto) [place] # (Auto) Eos # (Auto) Baso # (Auto) Sodium Potassium Chloride Carbon Dioxide BUN Creatinine Estimated GFR BUN/Creatinine Ratio Glucose Hemoglobin A1c Calcium Total Bilirubin AST ALT Alkaline Phosphatase Total Creatine Kinase CK-MB (CK-2) CK-MB (CK-2) Rel Index Troponin I < 0.012 Total Protein Albumin Globulin Albumin/Globulin Ratio Lipase Urine RBC 0-1/hpf Urine WBC 0-1/hpf Ur Squamous Epith Cells 1-5 /hpf Urine Bacteria Occasional (0-1) Ur Culture Indicated? Cult not indicated SARS-CoV-2 (PCR) Negative Assessment & Plan Assessment & Plan narrative: Abeba Elaine a 65-year-old female with a history of hyperlipidemia, and thyroidectomy for unknown etiology presented to the ED with 3 days of left-sided nonradiating chest pressure/chest pain. Patient admitted for chest pain rule out. 1. Chest pain, acute, present on admission, in the setting hyperlipidemia -Rule out myocardial ischemia, ACS, CAD, aortic dissection. -risk stratification -Trend troponins x3, TSH (reported history of thyroidectomy, on no medication), glucose 121, A1c ordered -EK. Sinus rhythm rate 65 MS interval 134 QRS 90 QTC 393 Q-wave noted in leads 3 and AVF non pathologic T-wave inversion in V2 V3 no ST changes surprisingly no change from 2019 EKG 2. Sinus rhythm rate 62 MS interval 138 QRS 80 QTC 416 persistent T-wave inversions in V2 V3 V4 [address] changes. -Heart Score:5 -80 mg atorvastatin -lipids, BNP, CBC, TSH, A1C, Troponin -stress test tomorrow 2. Hypertension, essential acute on chronic, present on admission -initial BP 222/93, 171/77, 189/86 -started lisinopril 10 mg b.i.d. -track blood pressure 3. Overweight as evidence by BMI of 27.4, acute on chronic, present on admission -consideration will be given for dietary counseling 4. Acid reflux, acute on chronic, present on admission -patient education regarding daily omeprazole for a period of 3-4 weeks to reach therapeutic level and improve acid reflux symptoms. -GI cocktail given Code status:Full Surrogate decision maker: Spouse COVID PCR:Negative COVID vaccination: Unknown DVT/VTE prophylaxis: Lovenox 40 mg and SCDs Disposition: Patient admitted for observation chest pain rule out risk stratification, expected length of stay less than 2 midnights. I have utilized all available immediate resources to obtain, update, or review the patient's current medications. I confirmed that the patient's advanced care plan is present, Code status is documented and/or surrogate decision maker is listed in the patient's medical record. Time Spent With Patient Critical Care time: I spent a total of [] minutes of critical care time on this patient's care today; this time is exclusive of procedural time. Quality VTE Deep Vein Thrombosis/Pulmonary Embolism Present on Admission: No
[2021-02-17 01:39] LABS: TSH w/ Reflex to FT4 0.54 uIU/mL (0.47-4.68)
[2021-02-17 03:30] VITALS: BP 143/75; PULSE 63; RESP 16; TEMP 36.4; O2SAT 99
[2021-02-17 05:42] LABS: Add Manual Diff / Slide Review NO; Basophils Absolute Auto 100 /uL (0-100); Basophils Percent Auto 0.9 % (0-2); Eosinophils Absolute Auto 300 /uL (0-450); Eosinophils Percent Auto 3.5 % (2-4); Hematocrit 35.5 % (36-46); Hemoglobin 11.7 g/dL (12.0-16.0); Lymphocytes Absolute Auto 2200 /uL (1100-4500); Lymphocytes Percent Auto 29.7 % (25-40); Mean Corpuscular HGB Conc 32.8 % (30-36); Mean Corpuscular Hemoglobin 27.6 PG (26-34); Mean Corpuscular Volume 84.1 fL (80-100); Monocytes Absolute Auto 500 /uL (0-900); Monocytes Percent Auto 6.8 % (3-14); Neutrophils Absolute Auto 4300 /uL (1500-7000); Neutrophils Percent Auto 59.1 % (50-75); Platelet Count 197 X10^3/uL (150-400); Red Blood Cell Count 4.22 X10^6/uL (4.0-5.2); Red Cell Distribution Width 13.9 % (11.6-14.8); White Blood Cell Count 7.3 X10^3/uL (4.5-11.0)
[2021-02-17 05:52] LABS: BUN Creatinine Ratio 19.4 (6-22); Blood Urea Nitrogen 14 mg/dL (7-17); Carbon Dioxide 32 mmol/L (22-32); Chloride 106 mmol/L (98-107); Estimated Glomerular Filt Rate > 60.0 mL/min (>60); Glucose 110 mg/dL (80-110); HEMOLYSIS < 15 (0-50); Potassium 3.8 mmol/L (3.4-5.1); Sodium 141 mmol/L (137-145)
[2021-02-17 05:55] LABS: Cholesterol 163 mg/dL (140-199); HDL Cholesterol 39 mg/dL (40-60); LDL Cholesterol Calculated 97 mg/dL (<100); Triglycerides 136 mg/dL (35-150)
[2021-02-17 05:59] LABS: NT-proBNP (BNP-Adult 18+) 69 pg/mL (<125)
[2021-02-17 06:02] LABS: Troponin I < 0.012 ng/mL (0.01-0.034)
[2021-02-17 07:45] VITALS: BP 147/64; PULSE 63; RESP 16; TEMP 36.1; O2SAT 100
[2021-02-17 08:08] VITALS: O2SAT 99
--- NOTE | 2021-02-17 08:42 | PC.NURSE ---
Addendum entered by Pam Lin R.N. 02/17/21 08:43: , and this policy writer typist about the reason for the stress test today. She has repeatedly refused and states I do not have time to sit aroung the hospital and wait for you guys to do your job. She also stated I will go see my primary care doctor and do the stress test as an outpatient. THOMAS Hou explained that insurance may not pay for the care she has received here so far. Dr Paiz aware of everything writen in this note. She denies any chest pain at this time. No nausea. IV has been removed. VS WNL. RA 98%. Denies any nausea. Awaiting Pt's spouse to arrive from [place]. Pt is dressed and eating and having coffee. Original Note: Day shift: Pt has signed the AMA form. Signed at approx 0815. She has talked to Dr Paiz, knitting machine operator automatic Lori
--- NOTE | 2021-02-17 09:29 | PC.NURSE ---
It has been reported to this waistline joiner overlock that pt has declared that she wants to leave the care of the hospital against medical advice and before her stress test today. This propellant charge zone assembler discussed with the patient, in the presence of her primary RN, and after she finished speaking with Dr. Paiz, whether she felt she had all the information she needed to make this decision for herself. She said Yes, she didn't want to stay and wait and she doesn't like hospitals Pt was told there maybe a chance that her insurance may not pay for all or some of her stay if she chose to leave AMA. Additionally, this propellant charge zone assembler let her know that we would be happy to see her care through if she stayed and that we would do what we could to make her more comfortable. At the end of this discussion, the patient was steadfast in her decision to leave. She was provided AMA forms which she signed and then left the hospital at 0937.
--- NOTE | 2021-02-17 09:46 | PC.NURSE ---
Day shift: Pt spouse came to get Pt at approx 0930 and Pt ambulated to car and is off AC unit at approx 0935.
--- NOTE | 2021-02-17 09:51 | P.DS_ITS ---
History of Present Illness History of Present Illness Chief complaint: Chest Pain Narrative: Per Lorelei Marie: Patient is Abeba Elaine a 65-year-old female with history of hyperlipidemia, and heartburn presenting with chest discomfort ongoing for last 3 days.? She says it is a dull ache on the left side of her chest nonradiating.? She is able to press on the site and illicit pain.? Patient notes that the pain was coming and going for 2 days but today it has been constant, it does not radiate, it does not worsen with deep breathing, eating, or movement.? Nothing worsens or improves the pain.? She thought it was gas she has been taking multiple [id number] medications without any relief, she notes that she takes omeprazole over the counter only as needed and not consistently.? 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 She was given aspirin and nitro in the ambulance which seemed to help.? Upon admit to the floor patient states that she feels mild pressure but the pain is resolved, she denies shortness of breath, diaphoresis, changes in vision, headache, abdominal pain, nausea, vomiting, diarrhea, chills, recent illness injury or trauma.? Patient states that she has been advised that her blood pressure has been high in the doctor's office from time to time.? Patient also reports that she had a thyroidectomy 5-6 years ago but was not required to take medication.? Patient denies smoking, alcohol or substance use.? Patient does state both mother and father were suffered from heart disease and hypertension. Patient presented to the ED with initial blood pressure 222/93, 171/77, upon admit her BP is improved 149/71, with a heart rate of 68 and still slightly tachypneic with a respiratory rate of 22 O2 sat 97% on room air.? Patient's CBC CMP and liver panel troponin, and lipase are all WNL.? Chest x-ray is negative for acute cardiopulmonary processes. Heart Score:5, EKG: Sinus rhythm rate 65 IN interval 134 QRS 90 QTC 393 Q-wave noted in leads 3 and AVF non pathologic T- wave inversion in V2 V3 no ST changes surprisingly no change from 2019 EKG 2. Sinus rhythm rate 62 IN interval 138 QRS 80 QTC 416 persistent T-wave inversions in V2 V3 V4 without ST changes. Patient admitted for chest pain rule out. Discharge Providers Provider Date of admission: 02/16/21 17:44 Discharge Date: 02/18/21 Primary care physician: Suzy Keller DO Discharge provider: Tomasz Paiz MD Summary Hospital Course Discharge Diagnosis: 1. Acute chest pain 2. Hypertension 3. GERD Hospital Course: Ms. Elaine was admitted with chest pain. She had troponins that were negative. EKG showed q-wave in the lead and t-wave inversion in V2, V3. The morning after admission, she wanted to go home. She had plan for stress test. It was stressed to her the medical recommendation that she undergo stress test to further evaluate her chest pain. She declined and left against medical advice after being counselled about the risk of heart attack and worsening cardiac function. Exam Vital Signs (past 8 hours): Oxygen Delivery Method Room Air Oxygen Flow Rate 0 Narrative Exam Narrative: GEN: no acute distress Objective Labs Result Diagrams: 02/17/21 05:25 02/17/21 05:25 [facility] Medical History (Updated 02/17/21 @ 00:47 by TIGIST Gomes-HUMZA) Acid reflux Hyperlipidemia Surgical History (Updated 02/17/21 @ 00:47 by SHEREEN Gomes) History of thyroidectomy Family History Mother Hypertension Father Congestive heart failure Hypertension Social History household members: spouse Smoking Status: Never smoker alcohol intake: never Discharge Plan Discharge Plan Patient Disposition: Home Nursing Discharge Comment: Pt left AMA. Notes made in JUL. AMA paperwork in chart. otolaryngology nurseTHOMAS joaquin. Dr Paiz aware as well. Discharge orders & Medications Prescriptions: No Action No Known Home Medications RF: 0 Follow up/Referrals: Suzy Keller DO [Primary Care Provider] - Visit Report/Discharge Packet Instructions: Cardiac Stress Test Discharge Data Primary Care Provider: Suzy Keller Attending Provider: Tomasz Paiz Quality VTE Deep Vein Thrombosis/Pulmonary Embolism Present on Admission: No MIPS - DC The patient has current or prior documentation of left ventricular ejection fraction (LVEF) less than 40%, or moderate or severely depressed left ventricular systolic function.: No
== END 2021-02-17 09:48 | disposition home or self-care (01) ==
LOC: ED 17:06 → AC 17:44
PROVIDERS: Nurse Practitioner Family; Admitting Provider Internal Medicine; Emergency Provider Emergency Medicine; PCP Family Medicine; Referring Provider Emergency Medicine; Visit Provider Internal Medicine
DX: R07.9 Chest pain, unspecified (principal); E78.5 Hyperlipidemia, unspecified; I10 Essential (primary) hypertension; K21.9 Gastro-esophageal reflux disease without esophagitis; Z53.29 Procedure and treatment not carried out because of patient's decision for other reasons; Z20.822 Contact with and (suspected) exposure to COVID-19
CPT/HCPCS: 36415; 71045; 80048; 80053; 80061; 81003; 81015; 82550; 83036; 83690; 83880; 84443; 84484; 85025; 87635; 93005; 99283; 99284; C9803; G0378